=== PATIENT | female | born 1960 ===

== ENCOUNTER 2023-03-04 05:27 | Day surgery (SDC) | payer OTHER ==
[~2023-03-04] VITALS: Ht 170.2 cm; Wt 102.1 kg
[~2023-03-04 05:27] MED LIST: ACTOS15 MG PO; AMLODIPINE BESYL5 MG PO; GLYBURIDE-METF1 EAC1 PO; OMEPRAZOLE-BIC1 EACH PO; PRAVASTATIN SOD20 MG PO
== END 2023-03-04 10:45 | disposition home or self-care (01) ==
LOC: CIR.AMB 05:27
PROVIDERS: ATTEND Surgery
DX: N63.12 Unspecified lump in the right breast, upper inner quadrant (principal); N60.31 Fibrosclerosis of right breast; N60.01 Solitary cyst of right breast; I10 Essential (primary) hypertension; Z20.822 Contact with and (suspected) exposure to COVID-19; E11.9 Type 2 diabetes mellitus without complications